=== PATIENT | female | born 1990 | race Asian ===

== ENCOUNTER 2017-02-03 20:09 | Emergency (ER) | payer SELFPAY ==
[2017-02-03 21:25] VITALS: BP 107/78
[2017-02-03] MEDS ORDERED: Acetaminophen TAB* 325 MG PO ONE (22:45)
[2017-02-03] MEDS ORDERED: HYDROcodone/ACETAMIN 5-325 MG* 1 TAB PO ONE (23:58)
--- NOTE | 2017-02-04 00:06 | UC ---
Michael Contreras Benjamin, scribed for Casie Zamora MD on 02/03/17 at 2306 . Back Pain HPI - HPI Summary HPI Summary: 26yo female c/o lower back and tailbone pain after slip and fall episode at work today around 1330. Pt denies other injury. No head injury. No LOC. No neck pain. No abd pain. Pt states she fell backwards on an indoor tile floor. 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 Negative: Swelling, Redness, Bruising, Abdominal Pain, Bladder Incontinence, Bowel Incontinence Related History: Occupational Injury - Allergies/Home Medications Allergies/Adverse Reactions: Allergies Allergy/AdvReac Type Severity Reaction Status Date / Time No Known Allergies Allergy Verified 02/03/17 21:26 Home Medications: Home Medications Levothyroxine TAB* [Synthroid 100 MCG TAB*] 02/03/17 [History] PMH/Surg Hx/FS Hx/Imm Hx Previously Healthy: No Endocrine History: Thyroid Disease - Surgical History Surgical History: None - Family History Known Family History: Positive: Diabetes - grand mother - Social History Occupation: Employed Full-time - [employer] Lives: With Family Alcohol Use: Occasionally Substance Use Type: None Smoking Status (MU): Never Smoked Tobacco Review of Systems Constitutional: Negative Skin: Negative Eyes: Negative ENT: Negative Respiratory: Negative Cardiovascular: Negative Gastrointestinal: Negative Genitourinary: Negative Motor: Negative Neurovascular: Negative Musculoskeletal: Arthralgia - coccyx, Myalgia - back pain Neurological: Negative Psychological: Negative All Other Systems Reviewed And Are Negative: Yes Physical Exam Triage Information Reviewed: Yes Appearance: Well-Appearing, Well-Nourished, Pain Distress Vital Signs: Initial Vital Signs Temp 97.3 F 02/03/17 21:21 Pulse 81 02/03/17 21:21 Resp 12 02/03/17 21:21 BP 107/78 02/03/17 21:21 Pulse Ox 100 02/03/17 21:21 Vital Signs Reviewed: Yes Eyes: Positive: Conjunctiva Clear ENT: Positive: Hearing grossly normal. Negative: Muffled/hoarse voice Neck: Positive: Supple Respiratory: Positive: Lungs clear, Normal breath sounds, No respiratory distress Cardiovascular: Positive: RRR, No Murmur, Pulses Normal, Brisk Capillary Refill Abdomen Description: Positive: Nontender, No Organomegaly, Soft. Negative: CVA Tenderness (R), CVA Tenderness (L), Distended, Peritoneal Signs, Pulsatile Mass Bowel Sounds: Positive: Present Musculoskeletal: Positive: Strength Intact, ROM Intact, Other: - tenderness at L -spine and coccyx Neurological: Positive: Alert, Muscle Tone Normal Psychological Exam: Normal Skin Exam: Normal Back Pain Course/Dx - Course Course Of Treatment: Reviewed medication lists and known allergies. 26yo female slipped and fell today at work, landing on her buttock against a indoor tiled floor. Pt reports tailbone pain that was initially a 6/10, which is now 7/ 10. Upon examination, pt was positive for L-spine and coccyx tenderness. No abdominal tenderness. PMHx include thyroid disease. FHx of DM. Pt works at [employer]. Imaging of coccyx and lumbar spine, read unofficially by Dr. Zamora as showing a coccyx fracture. Pt advised to use a donut cushion, take tylenol or ibuprofen for pain, and use norco 5/325 for severe pain, being mindful not to take more than 4grams of tylenol in 24 hrs. Pt advised to have definite f/u with PCP. - Differential Dx/Diagnosis Differential Diagnosis/HQI/PQRI: Cauda Equina Syndrome, Fracture, Herniated Disc , Strain, Sprain Provider Diagnoses: coccyx fracture s/p fall. lumbosacral strain s/p fall. Discharge - Discharge Plan Condition: Stable Disposition: HOME Prescriptions: HYDROcodone/ACETAMIN 5-325 MG* [[place] 5-325 TAB*] 1 tab PO Q4H PRN #18 tab MDD 6 PRN Reason: Pain Patient Education Materials: Coccyx Injury (ED) Forms: *Work Release Referrals: Geronimo Strong MD [Primary Care Provider] - 5 Days (definite follow up for continued care) Additional Instructions: Dr. Zamora gave you an unofficial reading of your xray as a coccyx fracture. She advised that you should call back tomorrow after 10am to obtain the official radiologist reading of the xray. Our nurses advise that [facility] should have a "donut cushion" that you can purchase. We have dispensed one hydrocodone/acetaminophen tablet that you make take tonight if you have severe pain and cannot sleep. Have definite follow up with Dr. Strong concerning your injury today. Return to urgent care if needed for any new or worsening symptoms. The documentation as recorded by the Michael velazco Benjamin accurately reflects the service I personally performed and the decisions made by me, Casie Zamora MD.
--- NOTE | 2017-02-04 08:19 | RAD ---
Indication: Back pain. 5 views of the lumbar spine demonstrates vertebral bodies to be normal in height. Disc spaces are well-preserved. Pedicles appear intact. IMPRESSION: No fracture of lumbar spine is noted.
--- NOTE | 2017-02-04 08:20 | RAD ---
Indication: Coccyx pain post fall. Comparison: No relevant prior exams available on the [facility] PACS for comparison. Technique: AP and lateral views sacrum and coccyx. REPORT AND IMPRESSION: There is a mildly impacted fracture at the fifth sacral vertebral body with up to 3 mm anterior displacement and mild surrounding soft tissue swelling. Negative for additional fracture or articular malalignment.
== END 2017-02-04 00:22 | disposition home or self-care (01) ==
LOC: UCEAST 20:09
DX: S32.2XXA Fracture of coccyx, initial encounter for closed fracture (principal); S39.012A Strain of muscle, fascia and tendon of lower back, initial encounter; W01.0XXA Fall on same level from slipping, tripping and stumbling without subsequent striking against object, initial encounter; Y99.0 Civilian activity done for income or pay
CPT/HCPCS: 72110; 72220; 81003; 84702; 99212; A9270-GY; G0463

== ENCOUNTER 2017-12-12 19:28 | Emergency (ER) | payer OTHER ==
[2017-12-12 19:39] VITALS: BP 113/65
--- NOTE | 2017-12-12 20:02 | ED ---
Throat Pain/Nasal Congestion - HPI Summary HPI Summary: 27-year-old male presents with lesion on left lower lip the past 2 days. She states she started having a burning sensation started today. She's never had this before. She denies any dental pain. She denies any sore throat. She denies any difficulty eating. She denies any chest pain shortness breath. She denies any recent illness. She states the burning sensation extends to outside of her face. She has not taking anything for her symptoms. She has been placing Neosporin on the area and keeping it clean. - History of Current Complaint Chief Complaint: [place]CS[place] Time Seen by Provider: 12/12/17 19:44 - Allergies/Home Medications Allergies/Adverse Reactions: Allergies Allergy/AdvReac Type Severity Reaction Status Date / Time No Known Allergies Allergy Verified 12/12/17 19:39 PMH/Surg Hx/FS Hx/Imm Hx Endocrine/Hematology History: Reports: Hx Thyroid Disease Cardiovascular History: Denies: Hx Hypertension Infectious Disease History: No Infectious Disease History: Denies: Traveled Outside the [place] in Last 30 Days - Family History Known Family History: Positive: Diabetes - grand mother - Social History Alcohol Use: Rare Substance Use Type: Reports: None Smoking Status (MU): Never Smoked Tobacco Review of Systems Negative: Fever Positive: Other - lesion on lip Negative: Chest Pain Negative: Shortness Of Breath All Other Systems Reviewed And Are Negative: Yes Physical Exam Triage Information Reviewed: Yes Vital Signs On Initial Exam: Initial Vitals Temp Pulse Resp BP Pulse Ox 98.4 F 71 16 113/65 100 12/12/17 19:34 12/12/17 19:34 12/12/17 19:34 12/12/17 19:34 12/12/17 19:34 Vital Signs Reviewed: Yes Appearance: Positive: Well-Appearing Skin: Positive: Warm, Dry Head/Face: Positive: Normal Head/Face Inspection Eyes: Positive: Normal, EOMI, ROGE, Conjunctiva Clear ENT: Positive: Normal ENT inspection, Pharynx normal, TMs normal, Other - vescicle on erythematous base on left lower lip Respiratory/Lung Sounds: Positive: Clear to Auscultation, Breath Sounds Present Cardiovascular: Positive: Normal, RRR Musculoskeletal: Positive: Normal Neurological: Positive: Normal Psychiatric: Positive: Normal Diagnostics - Vital Signs Vital Signs Temp Pulse Resp BP Pulse Ox 12/12/17 19:34 98.4 F 71 16 113/65 100 - Laboratory Lab Statement: Any lab studies that have been ordered have been reviewed, and results considered in the medical decision making process. EENT Course/Dx - Course Course Of Treatment: 27-year-old male presents with lesion on left lower lip the past 2 days. She states she started having a burning sensation started today. She's never had this before. She denies any dental pain. She denies any sore throat. She denies any difficulty eating. She denies any chest pain shortness breath. She denies any recent illness. She states the burning sensation extends to outside of her face. She has not taking anything for her symptoms. She has been placing Neosporin on the area and keeping it clean. On examination of the skull on erythematous base. Consistent with a herpes simplex virus. Will treat with Valtrex 2 g for 1 day. He understands agrees with plan. - Differential Diagnoses Differential Diagnoses: Other - Herpes simplex, apthous ulcer - Diagnoses Provider Diagnoses: Oral herpes simplex infection Discharge - Sign-Out/Discharge Documenting (check all that apply): Discharge/Admit/Transfer - Discharge Plan Condition: Good Disposition: HOME Prescriptions: ValACYclovir (*) [Valtrex 1 GM(*)] 2 gm PO BID #4 tab Patient Education Materials: Oral Herpes Simplex Virus Infections (ED) Referrals: Geronimo Strong MD [Primary Care Provider] - Additional Instructions: Take antiviral twice a day for 1 day Keep area clean Take Tylenol or ibuprofen every 6 hours for pain Return to ED if develop any new or worsening symptoms - Billing Disposition and Condition Condition: GOOD Disposition: HOME
== END 2017-12-12 20:20 | disposition home or self-care (01) ==
LOC: UCEAST 19:28
DX: B00.1 Herpesviral vesicular dermatitis (principal); E07.9 Disorder of thyroid, unspecified
CPT/HCPCS: 99212; G0463